=== PATIENT | male | born 1940 | race Caucasian/White ===

== ENCOUNTER 2021-01-21 03:44 | Outpatient (CLI) | payer OTHER, SELFPAY ==
--- NOTE | 2021-01-21 08:59 | DI.MRI_ITS ---
Exam(s) MR CERVICAL SPINE WO EXAM: MR CERVICAL SPINE WO CLINICAL HISTORY: chronic neck pain with recent falls,W19.XXXA,M54.2,G89.29,[id number] TECHNIQUE: Multiplanar multisequence MRI of the cervical spine was performed without intravenous con trast. COMPARISON: MR MRI CERVICAL SPINE WO CONTRAST from 08/24/2018 FINDINGS: The examination is limited due to patient motion artifact. BONES: Vertebral body heights are maintained. Intervertebral disc spaces are normal. Alignment is nor mal. Bone marrow signal intensity is within normal limits. CERVICAL CORD: Craniovertebral junction is unremarkable. There is again seen a syrinx in the spinal c ord extending from the C5 level to the C7 level. SOFT TISSUES: Unremarkable. C2-3: No disc herniation or bulge is identified. No significant central spinal canal or neural forami nal stenosis. C3-4: No disc herniation or bulge is identified. No significant central spinal canal or neural forami nal stenosis C4-5: No disc herniation or bulge is identified. No significant central spinal canal or neural forami nal stenosis C5-6: No disc herniation or bulge is identified. No significant central spinal canal or neural forami nal stenosis C6-7: There is mild prominence of the osteophyte disc complex. No central spinal canal stenosis is s een. There is mild bilateral neural foraminal stenosis. C7-T1: No disc herniation or bulge is identified. No significant central spinal canal or neural sebastian inal stenosis IMPRESSION: 1. Stable cervical spinal cord syrinx. 2. Degenerative changes at C6-C7 causing mild bilateral neural foraminal stenosis. DATA REPOSITORY:
== END 2021-01-21 04:04 ==
PROVIDERS: PCP Occupational Therapist; Visit Provider Internal Medicine
DX: G89.29 Other chronic pain (principal); M54.2 Cervicalgia; W19.XXXA Unspecified fall, initial encounter; G96.191 Perineural cyst; M47.812 Spondylosis without myelopathy or radiculopathy, cervical region
CPT/HCPCS: 72141

== ENCOUNTER 2021-01-25 13:13 | Outpatient (CLI) | payer OTHER, SELFPAY ==
--- NOTE | 2021-01-25 06:00 | DI.RAD_ITS ---
Exam(s) XR PAIN CLINIC LUMBAR SP 2V EXAM: XR PAIN CLINIC LUMBAR SP 2V CLINICAL HISTORY: Dx: Lumbar Spondylosis TECHNIQUE: 2D and realtime digital imaging was performed. CONTRAST MATERIAL: Refer to procedure report. COMPARISON: No exams were available for comparison FINDINGS: Fluoroscopy was provided for Dr. Powlel during the performance of a lumbar medial branch block. Please refer to the procedure report for complete details. Ka,r=16.46 mGy IMPRESSION:
--- NOTE | 2021-01-25 13:42 | PDOC.PAIN ---
Pain Clinic Procedure Note Procedure Note Procedure Note: PROCEDURE NOTE LUMBAR MEDIAL BRANCH DIAGNOSTIC BLOCKS Date of Service: January 25, 2021 Patient: Rl Hirsch Provider: Thang Powell MD Diagnosis: Lumbosacral Spondylosis without Myelopathy Post-operative diagnosis: Same Pre-procedure pain: VAS= 6/10 Pre-procedure Note History and Exam: Patient demonstrates today moderate to severe non- radicular back pain without neurologic deficit aggravated by hyperextension Yes Back pain greater than leg pain Yes Patient today has tenderness over the suspected joint(s) Yes History of post-traumatic injury No Hypertrophic arthropathy Yes Back pain associated with suspected motion segment instability or Hypermobility or pseudoarthrosis No Pre-testing pain score (VAS): 6/10 Previous medial branch block testing? no Today's Operative Note Rl Hirsch was greeted by the nurse who verified the patients name and . Patient was then taken to the fluoroscopy suite. Rl was interviewed and the medical record was reviewed. There were no medical contraindications to performing the bilateral lumbar medial branch nerve blocks. I first had a talk with the patient and discussed the potential risks, benefits, side effects, and alternatives of this procedure including but not limited to increased pain from the procedure, no pain relief, nerve damage, infection, and bleeding. @HE@ comprehended my conversation and accepts the risks and understands the goals of this diagnostic procedure. All questions and concerns from the patient were addressed. After I was comfortable that the patient was fully informed about this procedure, the printed consent form was signed. Standard time-out procedure was performed Rl was placed in the prone position on the fluoroscopy table and automated blood pressure cuff and pulse oximeter were applied. The anatomic target points of the segmental medial branches of bilatearl L3, L4, L5-DR were identified with fluoroscopy. Following thorough Chlorhexadine preparation of the skin and draping, a 22 gauge 3.5 spinal needle was placed under fluoroscopic guidance down on to the target point for each respective segmental medial branch.Position was confirmed in A/P, oblique and lateral views and 0.25 mls of Omnipaque-240 at each segmental nerve. At each level we injected 0.5ml of Bupivacaine 0.5%. (48 mls of Omnipaque was wasted) Rl 's vital signs were stable throughout the procedure and were as recorded in the docflowsheet by the nursing staff. Postoperatively, today patient demonstrates the following changes with hyperextension and with tenderness over the suspected joint(s). Provacative testing using the Hearn's facet loading test Right side Left side Directly before the block VAS (0-10) = 6/10 VAS (0-10) = 6/10 5 minutes after the block VAS (0-10) = 0/10 VAS (0-10) = 0/10 Percentage relief obtained with this diagnostic block 100% 100% Any improved physical functioning directly after the blocks? to be determined Next, Rl was asked to record the percent pain relief and any changes in provocative maneuvers for the next 4 hours. He will report this information at the next business day to one of our nurses. Based on the medial branches blocked today, if the patient meets insurance criteria for radiofrequency, the treatment should result in the denervation of the bilateral L4/5 and L5/S1 facet joint nerves. We would expect to denervate a total of 4 facets during the radiofrequency ablation. Discharge plan:: He will call back with his 0-4 hour post-procedure pain scores. Post-procedure pain: VAS= 0/10. Additional comments: patient has posterior axial neck pain extending at the base of skull which results in occipital headache. Patient has tenderness over bilateral occipital notches. Please schedule bilateral ONB as the next step in treating his neck pain. I personally performed the entire procedure. Thang Powell MD ABPN-subspecialty board certification in Pain Medicine Attending Physician - Pain Management
[2021-01-25 13:59] VITALS: BP 108/70; PULSE 62; RESP 18; TEMP 36.7; O2SAT 98
[2021-01-25 15:09] VITALS: BP 115/70; PULSE 68; RESP 15; O2SAT 100
[2021-01-25] MEDS: Bupivacaine 0.5% Pres-Free 10 ML VIAL IJ (15:10)
[2021-01-25] MEDS: Omnipaque 240 MG/ML 50 ML BTL IJ (15:10)
== END 2021-01-25 13:14 | disposition home or self-care (01) ==
LOC: PC 13:13
PROVIDERS: PCP Occupational Therapist; Visit Provider Internal Medicine
DX: M47.817 Spondylosis without myelopathy or radiculopathy, lumbosacral region (principal)
CPT/HCPCS: 64493; 64494; 72100; Q9967

== ENCOUNTER 2021-04-20 13:24 | Outpatient (CLI) | payer OTHER, SELFPAY ==
--- NOTE | 2021-04-20 06:00 | DI.RAD_ITS ---
Exam(s) XR PAIN CLINIC LUMBAR SP 2V EXAM: XR PAIN CLINIC LUMBAR SP 2V CLINICAL HISTORY: DX: Lumbar Spondylosis TECHNIQUE: 2D and realtime digital imaging was performed. CONTRAST MATERIAL: Refer to procedure report. COMPARISON: No exams were available for comparison FINDINGS: Fluoroscopy was provided for Dr. Rodriguez during the performance of a bilateral lumbar medial branch blo ck. Please refer to the procedure report for complete details. Ka,r=30.06 mGy IMPRESSION:
[2021-04-20 14:19] VITALS: BP 127/79; PULSE 79; RESP 20; TEMP 36.6; O2SAT 95
--- NOTE | 2021-04-20 15:10 | PDOC.PAIN ---
Pain Clinic Procedure Note Procedure Note Procedure Note: Lumbar/Sacral Medial Branch Blocks Rl Hirsch has been referred to the [facility] for lumbar/sacral medial branch blocks. COMMENTS: He did very well for the first 4 hours with his first LMBB DX: Lumbosacral spondylosis without myelopathy Pre-procedure pain VAS = 6/10 Patient was interviewed and the medical record reviewed. There were no medical, pharmacologic, radiographic or other structural contraindications to attempting fluoroscopically guided local anesthetic lumbar/sacral medial branch blocks. Risks and expected side effects as well as potential benefit of the procedure were reviewed and voiced concerns addressed. The printed consent form was signed and witnessed. Standard time-out procedure was performed. Patient was placed in the prone position on the fluoroscopy table and automated blood pressure cuff and pulse oximeter applied. The skin entry points for approaching the anatomic target points of the segmental medial branches of bilateral L3-L5 were identified with anfluoroscopy and marked. Following thorough Chlorhexadine preparation of the skin and draping and 1% lidocaine infiltration of the skin entry points and subcutaneous tissues, a 25 gauge 3.5 spinal needle was placed under fluoroscopic guidance down on to the target point for each respective segmental medial branch.Position was confirmed in A/P, oblique and lateral views with 0.25ml of omnipaque 240. At this point I injected 1/2 cc of 2% Lidocaine at each segmental sensory nerve. Vital signs were stable throughout the procedure and were as recorded in the docflowsheet by the nursing staff. Follow up plans and appointments were discussed and was instructed to keep careful note of how the usual pain was modified by these injections. Specifically was asked to keep a pain diary for the next 24 hours using a numeric pain scale of 0-10 and report these results at the follow-up visit. Post procedure instruction was given as documented in the nursing documentation and having met discharge criteria. Patient was discharged from the [facility]. Based on the medial branches blocked today, if the patient has adequate relief and we are able to proceed to radiofrequency ablation, the treatment should result in the denervation of the bilateral L4-L5 and L5-S1 FACET JOINTS. We would expect to denervate a total of 4 facets during the radiofrequency ablation. COMMENTS: Post-procedure pain VAS = 1/10. Patrice Rodriguez DO, MPH Pain Management CC: Altagracia Taylor
[2021-04-20] MEDS: Omnipaque 240 MG/ML 50 ML BTL IJ (15:13)
--- NOTE | 2021-04-20 15:13 | PDOC.PAIN ---
Pain Clinic Procedure Note Procedure Note Procedure Note: OCCIPITAL NERVE BLOCK PROCEDURE NOTE The patient complains of bilateral occipital head pain. Pre-operative diagnosis: Occipital Neuralgia Post-operative diagnosis: Same Pre-procedure pain: VAS= 6/10 Rl Hirsch was greeted by the nurse who verified patients name and . Mr. Hirsch was interviewed and the medical record reviewed. There were no medical, pharmacologic, radiographic, or other structural contraindications to attempting BILATERAL greater and lesser occipital nerve blocks. Risks and potential side effects were discussed. The potential benefits of the procedure were reviewed with Mr. Hirsch and his voiced concerns were addressed. After obtaining informed consent, the patient consent form was signed. Standard time-out procedure was performed. Rl was placed in the prone position on the examination table. The occipital protuberance was palpated. The skin just to each side of the occipital protuberance and out 2 inches lateral to the protuberance was thoroughly prepared with an alcohol preparation. Next, I entered the skin to each side of the protuberance with a 1.5 25G spinal needle. Aspiration revealed no blood or other fluid. Next, I injected 1 ml of preservative-free 0.5% Bupivacaine and removed the needle. I then placed the needle 2 inches lateral to each side to the occipital protuberance and entered the skin and advanced the needle to the skull. Next, I injected 3 ml of preservative-free 0.5% Bupivacaine to each side and removed the needles. Follow up plans and appointments were discussed with Rl . Post procedure instruction was given as documented in nursing documentation and having met discharge criteria,Rl was discharged from the [facility]. COMMENTS: No apparent complications. Post-procedure pain: VAS= 0/10 F/U with our office by phone. I personally performed this entire procedure. Patrice Rodriguez DO, MPH [facility]-subspecialty board certification in Pain Medicine Attending Physician - Pain Management
[2021-04-20] MEDS: Bupivacaine 0.5% Pres-Free 10 ML VIAL IJ (15:14)
[2021-04-20] MEDS: Lidocaine 2% Pres-Free 5 ML VIAL IJ (15:14)
[2021-04-20 15:27] VITALS: BP 128/69; PULSE 74; RESP 20; O2SAT 97
== END 2021-04-20 13:25 | disposition home or self-care (01) ==
LOC: PC 13:25
PROVIDERS: PCP Occupational Therapist; Visit Provider Preventive Medicine Occupational Medicine
DX: M54.81 Occipital neuralgia (principal); M47.817 Spondylosis without myelopathy or radiculopathy, lumbosacral region
CPT/HCPCS: 64405; 64493; 64494; 72100; Q9967

== ENCOUNTER 2021-06-29 07:26 | Outpatient (CLI) | payer OTHER, SELFPAY ==
--- NOTE | 2021-06-29 06:00 | DI.RAD_ITS ---
Exam(s) XR PAIN CLINIC LUMBAR SP 2V EXAM: XR PAIN CLINIC LUMBAR SP 2V CLINICAL HISTORY: Dx: Lumbar Spondylosis TECHNIQUE: 2D and realtime digital imaging was performed. COMPARISON: No exams were available for comparison FINDINGS: C-arm fluoroscopy was utilized by Dr. Rodriguez during reported bilateral lumbar radiofrequency ablation. Hard copies show needle placement bilaterally at the L5-S1 level and on the right at the L3-4 and L4 -5 levels. IMPRESSION: RADIATION DOSE DELIVERED: tammy Chand=32.0 mGy
[2021-06-29 07:42] VITALS: BP 162/100; PULSE 111; RESP 20; TEMP 36.8; O2SAT 97
[2021-06-29] MEDS: Lactated Ringers 1,000 ML 80 ML IV (08:31)
[2021-06-29] MEDS: Midazolam 2 MG/2 ML VIAL IVP (08:33)
[2021-06-29] MEDS: fentaNYL 100 MCG/2 ML VIAL IVP (08:33)
--- NOTE | 2021-06-29 09:15 | PDOC.PAIN ---
Pain Clinic Procedure Note Procedure Note Procedure Note: [Right/Left/Bilateral] Lumbar Radiofrequency with Coolief Machine PROCEDURE NOTE Date of Service: June 29, 2021 Patient: Rl Hirsch Provider: Patrice Rodriguez DO, MPH Pre Operative Diagnosis: Lumbosacral Spondylosis without Myelopathy Post Operative Diagnosis: Same Post procedure pain; VAS= 7/10 PROCEDURE: Radiofrequency Ablation of medial branches - Bilateral L3 L4 L5 and lateral branches of bilateral S1. Rl Hirsch was brought into the fluoroscopy suite and positioned into the prone position on the fluoroscopy table and allowed to adjust to a position of comfort. A grounding pad was placed on the [right/left] thigh. The lumbar region was widely prepped with a chloraprep solution, allowed to air dry and draped in standard sterile surgical fashion. Local anesthesia was provided by 4 mL of 2% Lidocaine delivered with a 25g needle. A 17g 100 mm radiofrequency introducer needle was placed to the planned anatomic targets guided with intermittent fluoroscopy with a perpendicular approach to terminally place at the junction of the superior articular process and the transverse process of the bilateral L3 L4 L5], the base of the sacral ala on the bilateral for the L5 medial branch nerve and the area between base of the sacral ala to the S1 foramen bilaterally. The stylets were removed and radiofrequency probes with a 4mm active tip were then inserted. Needle tip position of the probes was verified in the AP, oblique, and lateral views. At each site, the medial branch nerve was stimulated at 2 Hz to a maximum 1-2 volts determined to finalize safe needle and electrode placement. The patient was awake and responsive during this portion of the procedure. Each target was anesthetized with 1-2 mL of 2% Lidocaine for anesthesia for lesioning and then each target was lesioned at 80 degrees Celsius for 2 minutes and 30 seconds. Tissue impedences were noted to be between 250 and 500 Ohms. Electrodes and needles were then removed and bandages placed over the needle placement sites, the patient then returned to the supine position on a stretcher and transported to the recovery room without hemodynamic, neurologic, or allergic reactions. Fluoroscopic images were printed for hard copy recording and digitally archived. POST PROCEDURE EVALUATION: IMPRESSION: 1. Summary of procedure. Medication given is documented in the MAR. 2. The patient will be contacted in 1-3 weeks 3. Estimated Blood Loss: <5 mls 4. Fluoroscopy time: Documented in the EMR. Follow up plans and appointments were discussed with the Rl . Post procedure instruction was given as documented in nursing documentation and having met discharge criteria, Rl was discharged from the Pain Management Center. COMMENTS: No apparent complications. Post-procedure pain: VAS= 0/10. F/U with our office as needed. I personally performed this entire procedure. Patrice Rodriguez DO, MPH Attending Physician [facility]-Center for Pain Management
[2021-06-29] MEDS: Bupivacaine 0.5% Pres-Free 10 ML VIAL IJ (09:25)
[2021-06-29] MEDS: Lidocaine 2% Pres-Free 5 ML VIAL IJ (09:25)
[2021-06-29] MEDS: methylPREDNISolone ACETATE 40 MG/ML VIAL IJ (09:25)
== END 2021-06-29 07:27 | disposition home or self-care (01) ==
LOC: PC 07:26
PROVIDERS: PCP Occupational Therapist; Visit Provider Preventive Medicine Occupational Medicine
DX: M47.817 Spondylosis without myelopathy or radiculopathy, lumbosacral region (principal)
CPT/HCPCS: 64635; 64636; 72100; J1030; J2250; J3010

== ENCOUNTER 2021-09-02 01:21 | Outpatient (CLI) | payer MEDICARE, SELFPAY ==
--- NOTE | 2021-09-02 08:00 | DI.MRI_ITS ---
Exam(s) MR LUMBAR SPINE WO EXAM: MR LUMBAR SPINE WO CLINICAL HISTORY: Low back pain radiating into the B legs,RADICULITIS,M54.16. TECHNIQUE: Multiplanar multisequence MRI of the Lumbar spine was performed. COMPARISON: CR SPINE LUMBOSACRAL MIN 2 VIEWS from 08/24/2018 FINDINGS: Plain films of 08/24/2018 were reviewed. Conus medullaris is at normal level. There is no evidence of conus mass nor subjacent clumping of in trathecal nerve roots to suggest arachnoiditis. The distal thecal sac appears unremarkable.There is no evidence of Tarlov intrasacral cysts nor other significant findings within the sacral canal Bones:There are no fractures nor ominous osseous lesions in the lumbar vertebral bodies and visualize d sacrum. With respect to the individual levels... T12-L1: Unremarkable L1-2: Normal disc height and signal. No disc herniation nor central canal stenosis.No foraminal steno sis L2-3: Normal disc height. Symmetrical annular bulging. No dominant disc herniation. Central canal dimensions are lower normal. No significant foraminal stenosis. No facet arthropathy. L3-4: Normal disc height. No disc herniation or central canal stenosis.Some annular bulging into randi or of the exiting neural foramen is noted but there no significant foraminal stenosis on either side. No facet arthropathy. L4-5: Mild disc space narrowing noted posteriorly but is no disc herniation or central canal stenosis . No significant foraminal stenosis. Minimal facet degenerative changes L5-S1: Preserved disc height and signal. No disc herniation. No central canal stenosis. No signifi cant foraminal stenosis. L5 segment appears to be sacralized, seen on prior plain films Soft tissues: There is a prominent probable cyst noted in the right kidney, partially included in th e field of view. This can be further studied with ultrasound IMPRESSION: 1. Mild findings as described individually above. However, there is no evidence of prominent disc he rniation, prominent central canal stenosis nor prominent foraminal stenosis. 2. There are mild degenerative changes in the facet joints. No advanced facet arthropathy nor promin ent ligamentum flavum hypertrophy. 3. Incidentally noted is a finding in right kidney is only partially included in the field of view. Recommend ultrasound of the kidneys to ensure that this prominent finding is a cyst, as opposed to a solid lesion. DATA REPOSITORY:
== END 2021-09-02 01:41 ==
PROVIDERS: PCP Occupational Therapist; Visit Provider Preventive Medicine Occupational Medicine
DX: M51.16 Intervertebral disc disorders with radiculopathy, lumbar region; M47.26 Other spondylosis with radiculopathy, lumbar region
CPT/HCPCS: 72148

== ENCOUNTER 2021-10-05 11:50 | Outpatient (CLI) | payer MEDICARE, SELFPAY ==
[2021-10-05 12:16] VITALS: BP 103/65; PULSE 69; RESP 20; TEMP 36.6; O2SAT 96
[2021-10-05 12:57] VITALS: PULSE 82; O2SAT 96
[2021-10-05] MEDS: Bupivacaine 0.25% Pres-Free 30 ML VIAL (12:59)
--- NOTE | 2021-10-05 14:10 | PDOC.PAIN_ITS ---
Pain Clinic Procedure Note Procedure Note Procedure Note: OCCIPITAL NERVE BLOCK PROCEDURE NOTE The patient complains of bilateral occipital head pain. Pre-operative diagnosis: Occipital Neuralgia Post-operative diagnosis: Same Pre-procedure pain: VAS= 4/10 Rl Hirsch was greeted by the nurse who verified patients name and . Mr. Hirsch was interviewed and the medical record reviewed. There were no medical, pharmacologic, radiographic, or other structural contraindications to attempting BILATERAL greater and lesser occipital nerve blocks. Risks and potential side effects were discussed. The potential benefits of the procedure were reviewed with Mr. Hirsch and HIS voiced concerns were addressed. After obtaining informed consent, the patient consent form was signed. Standard time- out procedure was performed. Rl was placed in the prone position on the examination table. The occipital protuberance was palpated. The skin just to each side of the occipital protuberance and out 2 inches lateral to the protuberance was thoroughly prepared with an alcohol preparation. Next, I entered the skin to each side of the protuberance with a 1.5 25G spinal needle. Aspiration revealed no blood or other fluid. Next, I injected 1 ml of preservative-free 0.25% Bupivacaine and removed the needle. I then placed the needle 2 inches lateral to each side to the occipital protuberance and entered the skin and advanced the needle to the skull. Next, I injected 3 ml of preservative-free 0.25% Bupivacaine to each side and removed the needles. Follow up plans and appointments were discussed with Rl . Post procedure instruction was given as documented in nursing documentation and having met discharge criteria,Rl was discharged from the Pain Management Center. COMMENTS: No apparent complications. Post-procedure pain: VAS= 0/10 F/U with our office by phone. I personally performed this entire procedure. Patrice Rodriguez DO, MPH [facility]-subspecialty board certification in Pain Medicine Attending Physician - Pain Management
== END 2021-10-05 11:51 | disposition home or self-care (01) ==
LOC: PC 11:50
PROVIDERS: PCP Occupational Therapist; Visit Provider Preventive Medicine Occupational Medicine
DX: R51.9 Headache, unspecified (principal)
CPT/HCPCS: 64450; 64405

== ENCOUNTER → 2023-01-25 02:34 | Outpatient (CLI) | payer OTHER, SELFPAY ==
--- NOTE | 2023-01-25 15:00 | DI.MRI_ITS ---
Exam(s) MR CERVICAL SPINE WO EXAM: MR CERVICAL SPINE WO CLINICAL HISTORY: Worsening neck pain and leg weakness -hx of syrinx,[id number],m54.2 TECHNIQUE: Multiplanar multisequence MRI of the cervical spine was performed without intravenous con trast. COMPARISON: MR MRI CERVICAL SPINE WO CONTRAST from 08/24/2018 MR MR CERVICAL SPINE WO from 01/21/2021 FINDINGS: CERVICOMEDULLARY JUNCTION: Intact with no evidence of cerebellar tonsillar ectopia. No obvious abnor mality of the odontoid process. No evidence of Chiari 1 malformation. CERVICAL SPINAL CORD: The previously seen thin syrinx in the lower cervical spinal cord at C5-6-7 lev els evident on both prior MRI studies listed above is not evident on the present study. There is no abnormal signal in the cervical spinal cord and no evidence of focal cord atrophy nor focal cord swel ling. OSSEOUS:There are no cervical fractures evident. No significant osseous lesions in the cervical vert ebrae. Cervical curvature is unchanged. INDIVIDUAL LEVELS: C2-3: Normal disc height. No disc herniation or central canal stenosis. Some degenerative changes n oted in the left facet joint at this level.. No foraminal stenosis at this level. C3-4: Normal disc height. No disc herniation or central canal stenosis. There are some degenerative changes in the left facet joint at this level; less so in the right facet joint.. No significant fo raminal stenosis. C4-5: Normal disc height. No disc herniation. No central canal stenosis.Moderate degenerative joyce e in the right facet joint and moderate degenerative change in the left facet joint. No significant foraminal stenosis. C5-6: Normal disc height. No disc herniation or central canal stenosis. Mild degenerative changes i n both facet joints.. No significant foraminal stenosis. C6-7: This level again exhibits chronic disc space narrowing and symmetrical posterior annular bulgin g but without significant central spinal canal stenosis. There are Luschka joint osteophytes bilater ally. There is mild bilateral foraminal stenosis again noted at this level.. Facet joints at this l evel appear relatively unremarkable. C7-T1: No disc herniation nor central canal stenosis. No facet arthropathy.No foraminal stenosis. IMPRESSION: 1. Compared to the prior to MRI studies listed above, the previously present thinsyrinx In the lower cervical spinal cord is no longer seen on the sagittal T2 images. The axial images are too blurred by motion artifact for accurate interpretation. Nevertheless, the sagittal T2 sequence i s not blurred. 2. Given the above findings I feel this patient should return for to repeat sequences, this to includ e axial T2 and sagittal T2, for a total of 10 minutes in the scanner. This should be performed at no additional charge this patient. DATA REPOSITORY:
== END ==
PROVIDERS: PCP Occupational Therapist; Visit Provider Preventive Medicine Occupational Medicine
DX: M54.2 Cervicalgia
CPT/HCPCS: 72141